=== PATIENT | female | born 2005 | race Caucasian/White ===

== ENCOUNTER 2025-02-09 22:10 | Emergency (ER) | payer OTHER ==
[~2025-02-09] VITALS: Ht 165.1 cm; Wt 90.9 kg
[2025-02-09] MEDS: MethylPREDNISolone SOD SUCC 125 MG/2 ML VIAL IVP ONE (22:48)
[2025-02-09 22:53] LABS: COVID AG,FIA SOURCE NASAL SWAB
[2025-02-09] MEDS: ALBUTEROL SULFATE 2.5 MG/0.5 ML 5 ML NEB SOLUTION NEB ONE (22:55)
[2025-02-09] MEDS: IPRATROPIUM BROMIDE 0.5 MG/2.5 ML NEB SOLUTION NEB ONE (22:55)
[2025-02-09 22:56] LABS: BASOPHILS % (AUTO) 0.8 % (0.0-2.0); EOSINOPHILS % (AUTO) 8.4 % (1.0-6.0); HEMATOCRIT 43.1 % (36-46); HEMOGLOBIN 14.5 g/dL (12.0-16.0); LYMPHOCYTES # (AUTO) 2.8 K/uL (1.0-4.8); LYMPHOCYTES % (AUTO) 32.2 % (22.0-44.0); MEAN CORPUSCULAR HEMOGLOBIN 30.1 pg (26.0-34.0); MEAN CORPUSCULAR HGB CONC 33.7 G/dL (31.0-37.0); MEAN CORPUSCULAR VOLUME 89 fL (80-100); MONOCYTES # (AUTO) 0.6 K/uL (0.1-1.0); MONOCYTES % (AUTO) 6.6 % (2.0-9.0); NEUTROPHILS # (AUTO) 4.4 K/uL (1.8-7.7); PLATELET COUNT (AUTO) 308 K/uL (150-450); RED BLOOD CELL COUNT(AUTO) 4.82 MIL/uL (4.00-5.20); RED CELL DISTRIBUTION WIDTH 13.6 % (11.5-14.5); WHITE BLOOD COUNT (AUTO) 8.5 K/uL (4.5-11.0)
[2025-02-09 23:00] VITALS: PULSE 116; RESP 30; O2SAT 94
[2025-02-09 23:06] LABS: ANION GAP 5 mmol/L (8-16); CALCIUM, TOTAL 9.5 mg/dL (8.8-10.5); CARBON DIOXIDE 29 mmol/L (22-29); CHLORIDE 107 mmol/L (98-107); CREATININE 0.77 mg/dL (0.60-1.30); GLOMERULAR FILTR. RATE CALC > 60 mL/min (>60); GLUCOSE,RANDOM 110 mg/dL (70-110); POTASSIUM 4.5 mmol/L (3.5-5.1); SODIUM SERUM 141 mmol/L (136-145); UREA NITROGEN, BLOOD 15 mg/dL (7-18)
[2025-02-09 23:12] LABS: INFLUENZA TYPE A NEGATIVE FOR TYPE A (NEGATIVE); INFLUENZA TYPE B NEGATIVE FOR TYPE B (NEGATIVE); SARS-COV2 (COVID) ANTIGEN,FIA Negative (Negative)
[2025-02-09 23:12] LABS: ALANINE AMINOTRANSFERASE 16 U/L (12-78); ALBUMIN 3.9 g/dL (3.4-5.0); ALKALINE PHOSPHATASE 70 U/L (46-116); ASPARTATE AMINOTRANSFERASE 15 U/L (15-37); B-TYPE NATRIURETIC PEPTIDE < 5 pg/mL (0-100); BILIRUBIN,TOTAL 0.3 mg/dL (0.1-1.0); CREATINE KINASE, TOTAL ONLY 93 U/L (26-192); TOTAL PROTEIN, SERUM 7.3 g/dL (6.4-8.2)
[2025-02-09 23:15] LABS: TROPONIN I-HIGH SENSITIVITY Less Than 4 ng/L (<51)
[2025-02-09] MEDS: SODIUM CHLORIDE 0.9% 1,000 ML IV ONE (23:59)
[2025-02-10 00:05] VITALS: PULSE 119; RESP 24; O2SAT 99
[2025-02-10 01:19] VITALS: TEMP 97.6
[2025-02-10] MEDS: SODIUM CHLORIDE 0.9% 1,000 ML IV ONE (01:24)
[2025-02-10] MEDS ORDERED: PRED-554 PO (01:39)
[2025-02-10] MEDS: ALBUTEROL SULFATE HFA 90 MCG/PUFF 8 GM INHALER IH ONE (02:03)
[2025-02-10 02:05] VITALS: PULSE 114; RESP 17; O2SAT 96
[2025-02-10 02:26] VITALS: BP 105/59; PULSE 105; RESP 19; O2SAT 98
== END 2025-02-10 02:50 | disposition admitted as inpatient to this hospital (09) ==
LOC: EMS 22:13
DX: J45.901 Unspecified asthma with (acute) exacerbation (principal); Z20.822 Contact with and (suspected) exposure to COVID-19
CPT/HCPCS: 99285; 96374; 71045; 96361 ×2; 87426; 80048; 80076; 82550; 83880; 84484; 84703; 85025; 87804; 36415; 94644; 93005; J2919; J7030 ×2; J3535